=== PATIENT | male | born 1960 | race Caucasian/White ===

== ENCOUNTER 2017-09-16 08:08 | Observation (INO) | payer OTHER ==
--- NOTE | 2017-09-16 08:17 | EDPHY ---
H & P Time Seen by Provider: 09/16/17 08:17 HPI/ROS: CHIEF COMPLAINT: Nausea vomiting hypertension HISTORY OF PRESENT ILLNESS: Patient presents with nausea and vomiting and severe anxiety since Thursday when he had a confrontation with his manager case management at work. 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 The patient currently presents with nausea and vomiting starting yesterday which is now severe. Not associated with abdominal pain or headache or diarrhea. It is associated with higher blood pressure. He also has a lot of diffuse muscle cramps and aches as well as spasms in his hands and feet. REVIEW OF SYSTEMS: Eye: no change in vision ENT: no sore throat Cardiac: no chest pain or syncope Pulmonary: no cough or SOB Abdomen: HPI Musculoskeletal: no back pain Skin: no rash Neuro: no headache Constitutional: no fever : no urinary symptoms A comprehensive 10 point review of systems is otherwise negative aside from elements mentioned in the history of present illness. PAST MEDICAL HISTORY: Includes hypertension Social history: Work stress as noted above, no alcohol General Appearance: Alert and conversant, cooperative. Eyes: No scleral icterus. ENT, Mouth: Slightly dry mucous membranes Respiratory: Normal respiratory effort, breath sounds equal, lungs are clear to auscultation. Cardiovascular: Regular rate and rhythm. Gastrointestinal: Abdomen is soft and non tender. No McBurney's point tenderness. Neurological: Alert and oriented x3. Normally conversant. Face symmetric, normal movement and sensation in all extremities. Skin: Warm and dry, no rashes. Musculoskeletal: No peripheral edema and no joint swelling. Psychiatric: Very anxious, hyperventilating, shaky. Emergency Department course/MDM: Ativan 2 mg IV. I think it is unlikely he is having acute hypertensive emergency with end-organ damage. He received Zofran 4 mg pre-hospital. He does appear severely anxious. 940: Results discussed, patient has more likely hypovolemic hyponatremia as he has had no oral intake for 3 days and has been vomiting. Clinically is volume depleted. Admission for evaluation treatment of hyponatremia. 947: [facility] for [facility]. Got 1 L saline from EMS, repeat sodium 123. Constitutional: Initial Vital Signs Temperature (C) 36.7 C 09/16/17 08:41 Heart Rate 107 H 09/16/17 08:41 Respiratory Rate 22 H 09/16/17 08:41 Blood Pressure 202/124 H 09/16/17 08:41 O2 Sat (%) 99 09/16/17 08:41 O2 Delivery Mode Room Air Allergies/Adverse Reactions: No Known Allergies Allergy (Unverified 04/26/10 10:59) Home Medications: Medication Instructions Recorded Acetaminophen [Tylenol 325mg (*)] 650 - 975 mg PO DAILY 09/16/17 Escitalopram Oxalate [Lexapro] 20 mg PO DAILY 09/16/17 Herbals/Supplements -Info Only 1 ea PO DAILY 09/16/17 Hydrochlorothiazide [HCTZ (*)] 25 mg PO DAILY 09/16/17 Lisinopril [Zestril 20 mg (*)] 20 mg PO DAILY 09/16/17 Verapamil [Calan 120MG (*)] 120 mg PO DAILY 09/16/17 Medical Decision Making - Diagnostics EKG Interpretation: 12-lead EKG interpreted by me; official reading is in trace master. My interpretation is sinus rhythm with left anterior fascicular block rate 90. Imaging Results: Imaging Impressions Chest X-Ray 09/16/17 08:30 Impression: No focal pneumonia. - Data Points Laboratory Results: Laboratory Results 09/16/17 08:05 09/16/17 08:05 09/16/17 09/16/17 09/16/17 09:44 08:05 08:05 WBC 7.20 10^3/uL 10^3/uL (3.80-9.50) RBC 5.30 10^6/uL 10^6/uL (4.40-6.38) Hgb 17.7 g/dL H g/dL (13.7-17.5) POC Hgb 15.6 gm/dL gm/dL (13.7-17.5) Hct 47.3 % % (40.0-51.0) POC Hct 46 % % (40-51) MCV 89.2 fL fL (81.5-99.8) MCH 33.4 pg pg (27.9-34.1) MCHC 37.4 g/dL H g/dL (32.4-36.7) RDW 11.8 % % (11.5-15.2) Plt Count 282 10^3/uL 10^3/uL (150-400) MPV 9.0 fL fL (8.7-11.7) Neut % (Auto) 72.0 % % (39.3-74.2) Lymph % (Auto) 13.1 % L % (15.0-45.0) [place] % (Auto) 13.6 % H % (4.5-13.0) Eos % (Auto) 0.3 % L % (0.6-7.6) Baso % (Auto) 0.3 % % (0.3-1.7) Nucleat RBC Rel Count 0.0 % % (0.0-0.2) Absolute Neuts (auto) 5.19 10^3/uL 10^3/uL (1.70-6.50) Absolute Lymphs (auto) 0.94 10^3/uL L 10^3/uL (1.00-3.00) Absolute Monos (auto) 0.98 10^3/uL H 10^3/uL (0.30-0.80) Absolute Eos (auto) 0.02 10^3/uL L 10^3/uL (0.03-0.40) Absolute Basos (auto) 0.02 10^3/uL 10^3/uL (0.02-0.10) Absolute Nucleated RBC 0.00 10^3/uL 10^3/uL (0-0.01) Immature Gran % 0.7 % % (0.0-1.1) Immature Gran # 0.05 10^3/uL 10^3/uL (0.00-0.10) POC Sodium 123 mEq/L L mEq/L (134-144) Sodium 122 mEq/L L mEq/L (134-144) POC Potassium 3.5 mEq/L mEq/L (3.3-5.0) Potassium 4.0 mEq/L mEq/L (3.5-5.2) POC Chloride 84 mEq/L L mEq/L (97-110) Chloride 81 mEq/L L mEq/L (97-110) Carbon Dioxide 18 mEq/l L mEq/l (22-31) Anion Gap 23 mEq/L H mEq/L (8-16) POC BUN 12 mg/dL mg/dL (7-23) BUN 12 mg/dL mg/dL (7-23) Creatinine 0.9 mg/dL mg/dL (0.7-1.3) POC Creatinine 0.9 mg/dL mg/dL (0.7-1.3) Estimated GFR > 60 Glucose 125 mg/dL H mg/dL (70-100) POC Glucose 114 mg/dL H mg/dL (70-100) Calcium 11.2 mg/dL H mg/dL (8.5-10.4) Phosphorus 3.4 mg/dL mg/dL (2.5-4.5) Medications Given: Discontinued Medications Lorazepam (Ativan Injection) 2 mg IVP EDNOW ONE Stop: 09/16/17 08:31 Last Admin: 09/16/17 08:36 Dose: 2 mg Lorazepam (Ativan Injection) 1 mg IVP EDNOW ONE Stop: 09/16/17 09:18 Last Admin: 09/16/17 09:18 Dose: 1 mg Point of Care Test Results: 09/16/17 09:44 POC Sodium 123 L POC Potassium 3.5 POC Chloride 84 L POC BUN 12 POC Creatinine 0.9 POC Glucose 114 H Departure - Departure Disposition: [facility] Acute Clinical Impression: Hyponatremia Condition: Good
--- NOTE | 2017-09-16 08:18 | CPEKG ---
Heart Rate: 90 RR Interval: 667 P-R Interval: 128 QRSD Interval: 108 QT Interval: 364 QTC Interval: 446 P [place]: 0 QRS [place]: 256 T Wave [place]: 7 EKG Severity - ABNORMAL ECG - EKG Impression: SINUS RHYTHM EKG Impression: LEFT ANTERIOR FASCICULAR BLOCK EKG Impression: CONSIDER RIGHT VENTRICULAR HYPERTROPHY Electronically Signed By: Deny Hammond 16-Sep-2017 08:36:10
[2017-09-16] MEDS ORDERED: LORazepam 2 MG/ML INJ IVP ONE ×2 (08:30→09:17)
[2017-09-16] MEDS ORDERED: LORazepam 2 MG/ML INJ ONE (08:30)
[2017-09-16 08:43] LABS: % IMMATURE GRANULYOCYTES 0.7 % (0.0-1.1); ABSOLUTE IMMATURE GRANULOCYTES 0.05 10^3/uL (0.00-0.10); ADD DIFF? NO; ADD MORPH? NO; ADD SCAN? NO; ATYPICAL LYMPHOCYTE FLAG 0 (0-99); FRAGMENT RBC FLAG 0 (0-99); HEMATOCRIT 47.3 % (40.0-51.0); HEMOGLOBIN 17.7 g/dL (13.7-17.5); LEFT SHIFT FLG 10 (0-99); LIPEMIA HEMOLYSIS FLAG 90 (0-99); MEAN CELL HEMOGLOBIN 33.4 pg (27.9-34.1); MEAN CELL HEMOGLOBIN CONCENTR. 37.4 g/dL (32.4-36.7); MEAN CELL VOLUME 89.2 fL (81.5-99.8); PLATELET CLUMPS FLAG 0 (0-99); PLATELET COUNT 282 10^3/uL (150-400); RED CELL DISTRIBUTION WIDTH 11.8 % (11.5-15.2)
[2017-09-16 08:49] LABS: ANION GAP 23 mEq/L (8-16); CALCIUM 11.2 mg/dL (8.5-10.4); CARBON DIOXIDE 18 mEq/l (22-31); CHLORIDE 81 mEq/L (97-110); CREATININE 0.9 mg/dL (0.7-1.3); GLOMERULAR FILTRATION RATE > 60; GLUCOSE 125 mg/dL (70-100); SODIUM 122 mEq/L (134-144)
[2017-09-16] MEDS ORDERED: ACETAMINOPHEN 325 MG TAB PO PRN (13:15)
[2017-09-16] MEDS ORDERED: NS 1,000 ML IV SCH ×2 (13:15→13:30)
[2017-09-16] MEDS ORDERED: ONDANSETRON 4 MG/2 ML VIAL IVP PRN (13:15)
[2017-09-16] MEDS ORDERED: ONDANSETRON DISINTEGRATING 4 MG TAB PO PRN (13:15)
[2017-09-16] MEDS ORDERED: ZOLPIDEM TARTRATE 5 MG TAB PO PRN (13:15)
--- NOTE | 2017-09-16 17:00 | PDGENHP ---
History and Physical History and Physical: CC: Nausea vomiting diarrhea and tremor HISTORY: This patient comes to the ER today complaining that he feels very anxious and stressed. When I asked him in detail about the symptoms he describes the nausea vomiting, diarrhea, rigors chills and sweats, alternating hot and cold, without abdominal pain or bleeding. He has not checked his temperature. 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 He does note that he has been feeling stressed at work for some time now. Some of these episodes are associated with obvious rapid pounding heart rate. He is intermittently during this time had high blood pressures more than usual when he measures them. In addition to the above the patient's all the some mentions that he is a snorer, has restless legs at night, has leg cramps at night. He does admit to having daytime somnolence symptoms. He does have a history of ongoing hypertension on treatment and is overweight. 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 I have reviewed the list and ordered appropriate medicines. PHYSICAL EXAMINATION: Vital Signs: Initially very hypertensive and tachycardic, after some Ativan in some IV fluids his blood pressures and pulse are much better, no fever here so far Package Sealer Machine: Sinus rhythm Examination: General: alert, oriented, good mentation, relaxed Skin: warm, dry, good color, no rash HEENT: normal Neck: no mass or jvd Resps: relaxed Lungs: clear breath sounds Heart: regular, no murmur Abdomen: soft, nondistended, nontender, +BS, no mass Upper Extremities: normal Lower Extremities: no edema, warm No Bleeding or bruising Neurologic: normal speech/language, normal silk folder, no focal weakness IV site: looks normal LABORATORY DATA: Sodium 122 CO2 18 calcium 11.2 Hemoglobin 17.4 RADIOLOGY STUDIES: Chest x-ray single view in the ER, my personal review of image: Normal chest x- ray 12 LEAD EK lead EKG in the ER, my personal review of the tracing: Poor baseline makes interpretation difficult but I see a sinus rhythm with probable left anterior fascicular block no other acute abnormalities ASSESSMENT: -acute gastroenteritis is suspected with fever diarrhea nausea vomiting and dehydration; suspect norovirus is there is a ramp at outbreak here -dehydration evidenced by multiple lab values and his history and his tachycardia -hyponatremia caused by decreased oral intake, GI losses, and use of diuretic hydrochlorothiazide; this is probably fairly acute but I have no comparison laboratory values -chronic hypertension with significant elevated blood pressures in the last 2 days including today, did not take his blood pressure medicines at home today due to nausea vomiting; I suspect his blood pressure may be better controlled but then this acute setting but will need careful follow-up once he resolved the acute illness -multiple symptoms strongly suggestive of obstructive sleep apnea, not tested in the past while I believe that this is quite likely the apple turner to be a infectious gastroenteritis bringing him to , a would include in the differential diagnosis hyperthyroidism given the tremor, tachycardia, diarrhea, anxiety PLANS: -IV hydration with saline, follow sodium levels closely; limited oral fluid intake for now and will hold his hydrochlorothiazide -antiemetics and if needed antidiarrheals line -contact and droplet isolation -GI pathogen panel to look for norovirus or other cause of diarrheal and vomiting illness -TSH and T3 T4 ordered -resume his beta and calcium blockers, follow blood pressures very closely here and after discharge -I did review sleep apnea symptoms, mechanism, complications, and treatments with the patient and and have recommended strongly that he visit with his primary care doctor for referral for sleep testing I have reviewed the patient's case in detail with Dr. Deny Hammond via his conversation with Shea Jones NP
[2017-09-16 20:16] LABS: ANION GAP 12 mEq/L (8-16); CALCIUM 9.5 mg/dL (8.5-10.4); CARBON DIOXIDE 23 mEq/l (22-31); CHLORIDE 87 mEq/L (97-110); CREATININE 0.9 mg/dL (0.7-1.3); GLOMERULAR FILTRATION RATE > 60; GLUCOSE 100 mg/dL (70-100); POTASSIUM 3.7 mEq/L (3.5-5.2); SODIUM 122 mEq/L (134-144)
[2017-09-16 20:32] VITALS: RESP 18
[2017-09-17 05:21] LABS: ANION GAP 13 mEq/L (8-16); CALCIUM 9.7 mg/dL (8.5-10.4); CARBON DIOXIDE 26 mEq/l (22-31); CHLORIDE 92 mEq/L (97-110); CREATININE 0.9 mg/dL (0.7-1.3); GLOMERULAR FILTRATION RATE > 60; GLUCOSE 108 mg/dL (70-100); POTASSIUM 4.2 mEq/L (3.5-5.2); SODIUM 131 mEq/L (134-144)
[2017-09-17 07:36] VITALS: BP 149/89; PULSE 73; TEMP 98; O2SAT 94
[2017-09-17] MEDS ORDERED: VERAPAMIL 120 MG TAB PO SCH (09:00)
[2017-09-17] MEDS ORDERED: ESCITALOPRAM OXALATE 10 MG TAB PO SCH (09:00)
[2017-09-17] MEDS ORDERED: LISINOPRIL 20 MG TAB PO SCH (09:00)
--- NOTE | 2017-09-17 12:40 | ASDISCHSUM ---
Discharge Information Plan Status: Medically Cleared to Leave: Discharge Date:09/17/2017 12:02 PM CM D/C Disposition: ADT D/C Disposition:Home, Routine, Self-Care Projected Discharge Date:09/17/2017 12:02 PM Transportation at D/C: Discharge Delay Reason: Follow-Up Date:09/17/2017 12:02 PM Discharge Slot: Final Diagnosis: Placement Information Patient Contact Information Contact Name:LEONIDES Relationship: Address:[address] [place] [address] City:[place] Alternate Phone: State/Zip Code:[place] [address] Email: Financial Information Financial Class:Karen Valentin Primary Plan Desc:[employer] LOCAL Primary Plan Number:[id number] Secondary Plan Desc: Secondary Plan Number: Assessment Information LACE LACE Acuity / Level of Care Answers: Was the patient admitted to hospital via the emergency department? Yes: Emergency dept visits in Answers: 1 last 6 months Score: 4 Date Signed: 09/16/2017 10:25 AM Electronically Signed By:Larissa Daly RN Intervention Information
--- NOTE | 2017-09-17 18:31 | GDS ---
[f rep st] DISCHARGE SUMMARY A previous dictation was performed, it is unclear if it was captured. DISCHARGE DIAGNOSES: Include: 1. Suspected viral gastroenteritis. 2. Hypovolemic hyponatremia. 3. Hypertension. HISTORY OF PRESENT ILLNESS: A 57-year-old male who presents with intractable nausea, vomiting. For details of patient's initial presentation, please see the History and Physical dated 09/16/2017. CONSULTATIVE SERVICES: None. PROCEDURES: None. HOSPITAL COURSE: By issue: 1. Suspected viral gastroenteritis. The patient had rapid onset and severity of the symptoms with s pontaneous resolution consistent with viral gastroenteritis. Stool was never obtained to confirm. T he patient is tolerating p.o. without diarrhea at the time of disposition. 2. Severe hyponatremia. Patient received IV fluid resuscitation and had normalization of his sodium to 131 on the day of disposition. His symptoms were resolved. We are holding hydrochlorothiazide at discharge until he has his labs checked in the outpatient setting. MEDICATIONS AT THE TIME OF TRANSFER: Please reference med rec printed on 09/17/2017. PENDING STUDIES: At the time of this dictation, are none. I spent greater than 30 minutes in the planning and coordination of this discharge. FOLLOWUP APPOINTMENTS: Include with his primary care provider next week for a BP check and laborator y check. /[id number]/MODL
--- NOTE | 2017-09-17 18:42 | GDS ---
[f rep st] DISCHARGE SUMMARY DISCHARGE DIAGNOSES: Include: 1. Suspected viral gastroenteritis. 2. Hyponatremia secondary to hypovolemia. 3. Weakness secondary to dehydration and hyponatremia. 4. Hypertension. HISTORY OF PRESENT ILLNESS: A 57-year-old male with a history of hypertension, who presents with sev eral days of intractable nausea, vomiting, and diarrhea. For details of patient's initial presentati on, please see the History and Physical dated 09/16/2017. CONSULTATIVE SERVICES: None. PROCEDURES: None. HOSPITAL COURSE: By issue: 1. Suspected viral gastroenteritis. Patient presented with a clinical scenario consistent with unfo rtunately did not pass a stool during his hospital stay to allow examination. Based on the time, cou rse, severity of symptoms and spontaneous resolution, I think a presumed viral gastroenteritis is simin ropriate. Patient did receive supportive care and has not stooled in the 12 hours since he has been in the hospital. Tolerating p.o. intake and stable on his feet. He has been recommended to maintain good oral hydration at disposition. 2. Hyponatremia. Patient had dramatic drop in his serum sodium at presentation, received fluid resu scitation and had correction of his sodium to the low 130s. On the day of discharge, he was symptoma tically at his reported baseline. I believe the patient's drop in serum sodium was pronounced by the outpatient use of hydrochlorothiazide. We are discontinuing this medication from his list currently . He is to follow in the outpatient setting with his primary care. 3. Hypertension. We are continuing the non-hydrochlorothiazide antihypertensive at discharge. The patient's renal function is normal and his systolic blood pressures can clearly tolerate. We have as ked that he present to his primary care provider at the end of next week for a blood pressure check a nd laboratory check. MEDICATIONS: At the time of disposition, please reference the med rec printed on 09/17/2017. Of not e, no new medications were added to this patient's list. We are simply holding hydrochlorothiazide a t discharge. PENDING STUDIES: At the time of this dictation are none. TIME SPENT: I spent greater than 30 minutes in the planning and coordination of this discharge. /[id number]/MODL
== END 2017-09-17 12:02 | disposition home or self-care (01) ==
LOC: EDUNIT# → F3E 14:17
PROVIDERS: ADMIT Internal Medicine; ATTEND Hospitalist
DX: A08.4 Viral intestinal infection, unspecified (principal); E87.1 Hypo-osmolality and hyponatremia; E86.1 Hypovolemia; E86.0 Dehydration; R53.1 Weakness; I10 Essential (primary) hypertension
CPT/HCPCS: 71020; 93005; 96374; 96376; 99285; G0378; 82947-QW; 84481-90; J2060

== ENCOUNTER → 2019-03-28 | Outpatient (CLI) | payer OTHER | LOC: BMCIMAGING 15:52 ==